=== PATIENT | male | born 1985 | race Caucasian/White ===

== ENCOUNTER 2018-02-07 06:12 | Day surgery (SDC) | payer OTHER, MEDICAID ==
--- NOTE | 2018-02-06 18:06 | PDGENHP ---
History & Physical Chief Complaint: left knee pain History of Present Illness: 32 yo male, presenting today for left knee ACL reconstruction surgery by dr. burkett for left knee ACL tear s/p ski injury. Pertinent Past, Social, Family History: allergies: NKDA. PMH: denies. meds: denies. soc: former smoker, occasional ETOH, denies recreational drug use Relevant Physical Exam: LLE: no erythema/edema/ecchymosis, 5deg valgus deformity , symmetric extension, flexion 0-160, +Piyush Assessment & Plan Assessment: 32 yo male w/ left knee ACL tear, presenting today for left knee ACL repair, partial medial/lateral meniscal repair vs menisectomy Plan: left knee ACL repair, partial medial/lateral meniscal repair vs menisectomy by dr. burkett
[~2018-02-07 06:12] MED LIST: LR 1,000 ML IV SCH; ceFAZolin 2 GM/DEXTROSE 100 ML IV ONE
[2018-02-07] MEDS ORDERED: LR 1,000 ML IV ONE (06:13)
[2018-02-07] MEDS ORDERED: ROPIVACAINE HCL 20 MG/10 ML INJ EP ONE ×2 (06:44→06:45)
[2018-02-07] MEDS ORDERED: MIDAZOLAM 2 MG/2 ML VIAL IVP ONE (06:49)
--- NOTE | 2018-02-07 06:49 | PDANEPAE ---
ANE History of Present Illness here for L ACL ANE Past Medical History - Cardiovascular History Hx Hypertension: No Hx Arrhythmias: No Hx Chest Pain: No Hx Coronary Artery / Peripheral Vascular Disease: No Hx CHF / Valvular Disease: No Hx Palpitations: No - Pulmonary History Hx COPD: No Hx Asthma/Reactive Airway Disease: No Hx Recent Upper Respiratory Infection: No Hx Oxygen in Use at Home: No Hx Sleep Apnea: No - Neurologic History Hx Cerebrovascular Accident: No Hx Seizures: No Hx Dementia: No - Endocrine History Hx Diabetes: No Hypothyroid: No Hyperthyroid: No - Renal History Hx Renal Disorders: No - Liver History Hx Hepatic Disorders: No ANE Review of Systems Review of systems is: negative Review of Systems: - Exercise capacity Exercise capacity: >=4 METS ANE Patient History - Allergies Allergies/Adverse Reactions: No Known Allergies Allergy (Unverified 08/22/14 14:14) - Home Medications Home medications: home medication list seen and reviewed Home Medications: NK [No Known Home Meds] 02/07/18 [Last Taken Unknown] - NPO status NPO Status: no food or drink >8 hours NPO Since - Liquids (Date): 02/06/18 NPO Since - Liquids (Time): 23:30 NPO Since - Solids (Date): 02/06/18 NPO Since - Solids (Time): 22:00 - Anes Hx Anes Hx: no prior problems - Smoking Hx Smoking Status: Current every day smoker ANE Labs/Vital Signs - Vital Signs Vital Signs: reviewed preoperatively; see RN documention for details Blood Pressure: 152/85 Heart Rate: 63 Respiratory Rate: 18 O2 Sat (%): 95 Height: 175.26 cm Weight: 79.379 kg ANE Physical Exam - Airway Neck exam: FROM Mallampati Score: Class 1 - Pulmonary Pulmonary: no respiratory distress - Cardiovascular Cardiovascular: regular rate and rhythym - ASA Status ASA Status: II ANE Anesthesia Plan Anesthesia Plan: GA w LMA Regional Anesthesia: adductor canal FNB
[2018-02-07] MEDS ORDERED: NS 500 ML IV PRN (06:56)
[2018-02-07] MEDS ORDERED: fentaNYL 100 MCG/2 ML INJ IVP PRN (06:56)
[2018-02-07] MEDS ORDERED: LR 500 ML IV PRN (06:56)
[2018-02-07] MEDS ORDERED: HYDROmorphONE/DILAUDID 1 MG/ML INJ IVP PRN ×2 (06:56→09:47)
[2018-02-07] MEDS ORDERED: ONDANSETRON 4 MG/2 ML VIAL IVP PRN ×2 (06:56→09:47)
[2018-02-07] MEDS ORDERED: DEXAMETHASONE 4 MG/ML VIAL IVP PRN (06:56)
[2018-02-07] MEDS ORDERED: ALBUTEROL 3 ML DEYVIAL IH PRN (06:56)
[2018-02-07] MEDS ORDERED: NALOXONE HCL 0.4 MG/ML INJ IVP PRN (06:56)
[2018-02-07] MEDS ORDERED: fentaNYL 100 MCG/2 ML INJ ONE ×2 (07:06→08:29)
[2018-02-07] MEDS ORDERED: PROPOFOL/EMULSION 500 MG/50 ML BOTTLE IV ONE (07:20)
[2018-02-07] MEDS ORDERED: ePHEDrine SULFATE 25 MG/5 ML SYR ONE (08:06)
[2018-02-07] MEDS ORDERED: oxyCODONE IR 5 MG TAB PO PRN (09:47)
[2018-02-07] MEDS ORDERED: ONDANSETRON DISINTEGRATING 4 MG TAB PO PRN (09:47)
[2018-02-07] MEDS ORDERED: PROMETHAZINE HCL 25 MG/ML INJ IVP PRN (09:47)
[2018-02-07] MEDS ORDERED: ACETAMINOPHEN 325 MG TAB PO PRN (09:47)
--- NOTE | 2018-02-07 09:52 | POSTOPPROG ---
Post Op Note Date of Operation: 02/07/18 Surgeon: Shawn Meza Labor Service Representative: Sebastian Mckenna PA-C Anesthesia: GET(General Endotracheal) Pre-op Diagnosis: left knee ACL rupture Post-op Diagnosis: left knee ACL rupture Procedure: left knee ACL hamstring graft repair Inf/Abcess present in the surg proc area at time of surgery?: No EBL: Minimal Complications: none
--- NOTE | 2018-02-07 10:23 | GOP ---
[f rep st] OPERATIVE REPORT DATE OF OPERATION: 02/07/2018 SURGEON: Shawn Meza MD FARM EQUIPMENT ASSEMBLER: Eric Mckenna PA-C, medically required for positioning of the leg during arthroscopi c ACL reconstruction and careful retraction of vital neurovascular structures during hamstring autogr aft. PREOPERATIVE DIAGNOSIS: 1. Left knee anterior cruciate ligament (ACL) tear. 2. Partial medial and lateral meniscus tears. 3. Chondromalacia. POSTOPERATIVE DIAGNOSIS: 1. Left knee anterior cruciate ligament (ACL) tear. 2. Partial medial and lateral meniscus tears. 3. Chondromalacia. PROCEDURE PERFORMED: 1. Arthroscopic anterior cruciate ligament (ACL) reconstruction with hamstring autograft, quadruple semi-tendinosis. 2. Arthroscopic partial medial and lateral meniscectomy less than 5% of the posterior horn removed. 3. Construct used was a 9.5 mm quadrupled over semitendinosus graft with reverse tensioning tight ro pes on either side. 4. Extensive synovectomy. FINDINGS: ESTIMATED BLOOD LOSS: Minimal. INDICATIONS: 32-year-old male who had a ski injury a couple years ago and repeat injury sustaining A CL tear. Clinically, radiographic and MRI confirmed the ACL tear. Knee instability. He did a pre-s urgical rehab that made his knee strong. DESCRIPTION OF PROCEDURE: The patient identified in the preoperative holding area, consent lateralit y and preoperative antibiotics were confirmed and delivered. All questions were answered. His girlf riend was at the bedside. Left knee was identified. He had full range of motion. Unstable Piyush' s, positive pivot shift. No swelling. Skin looked healthy. The patient brought into the operating room. Adductor canal block. All extremities well padded. Ge neral anesthesia. The left lower extremity was prepped and draped in usual sterile fashion. Surgica l time-out was performed. A thigh tourniquet was placed. The hamstring harvest ensued without the thigh tourniquet. Figure 4 position. A 2 cm incision over the pes anserinus. Blunt dissection. The sartorius fascia identified. We found the semi-tendinosis and harvested this after releasing the gastroc attachments. We had a nice robust graft and quadrupl ed over on the back table. We found it to be about a tight 9.5 mm graft. We fashioned a graft link with reverse tensioning tight ropes on either side at the 66 mm running length. We anticipated 20 mm sockets in depth. The graft was safely placed on the back table with a moist Ray-Hannah. Attention was then turned to the arthroscopic portion. Esmarch exsanguination. Total tourniquet clarence e was 60 minutes. Standard two portal technique diagnostic arthroscopy included grade 1 patella, gra de 0 trochlea, medial compartment looked excellent with a little bit of fraying of the medial meniscu s inner 3rd. The ACL was scarred to the PCL. The posterolateral bundle was completely torn and abou t 90% of the anteromedial bundle was torn. There were some chronic hypertrophic changes in the mid s ubstance. There was a partial cyclops lesion inferiorly at the tibial insertion. The lateral compar tment there was a small cleavage on the lateral tibial plateau, grade 1/2 cartilage damage, grade 1 s oftening of the lateral femoral condyle and the inner 3rd fraying of the posterior horn. Partial medial and lateral meniscectomy was performed, less than 5% of the posterior horn of either s melquiades. Extensive synovectomy was performed anterior medial and lateral compartment for ACL reconstruct ion. ACL debridement was performed. We marked the posterior aspect of the bifurcate ridge on the fe mur as well as tangential to the anterior horn and lateral meniscus. We drilled a 9.5 mm sockets abo ut 30 mm depth. We had about a 40 mm interosseous length on either side. Parked loops of sutures re trieved out of the anteromedial portal. We passed the graft easily. Predetermined henriquez. We tensio brook this in full extension. We took final pictures in 90 degrees knee flexion, knee extension, and w e had a grade 0 Piyush's, negative pivot shift and full range of motion of the knee. Arthroscopic fluid and debris were removed. We did C-arm films to ensure button placement which look ed excellent. We closed the wounds with 3-0 Monocryl and Dermabond, Mastisol, Steri-Strips, Xeroform , 4x4s, ABD, and sterile Ki. COMPLICATIONS: None. DISPOSITION: Extubated to the PACU in stable condition. /[id number]/MODL
[2018-02-07] MEDS ORDERED: ACETAMINOPHEN 325 MG TAB ONE (10:28)
[2018-02-07] MEDS ORDERED: oxyCODONE IR 5 MG TAB ONE (10:30)
[2018-02-07 11:10] VITALS: BP 128/77
--- NOTE | 2018-02-07 13:50 | POSTANESTH ---
Post Anesthetic Evaluation Cardiovascular Status: Normal, Stable Respiratory Status: Normal, Stable Level of Consciousness/Mental Status: Can Participate in Eval Pain Control: Adequate, Prn Tx Ordered Nausea/Vomiting Control: Adequate, Prn Tx Ordered Complications Possibly Related to Anesthesia: None Noted
== END 2018-02-07 12:10 | disposition home or self-care (01) ==
LOC: FSGY 06:12
PROVIDERS: ATTEND Orthopaedic Surgery
PROC: 0SBD4ZZ Excision of Left Knee Joint, Percutaneous Endoscopic Approach (ICD-10-PCS; principal; 2018-02-07 07:15)
PROC: 0SQD4ZZ Repair Left Knee Joint, Percutaneous Endoscopic Approach (ICD-10-PCS; principal; 2018-02-07 07:15)
PROC: 0MQP4ZZ Repair Left Knee Bursa and Ligament, Percutaneous Endoscopic Approach (ICD-10-PCS; principal; 2018-02-07 07:15)
DX: S83.512A Sprain of anterior cruciate ligament of left knee, initial encounter (principal); S83.242A Other tear of medial meniscus, current injury, left knee, initial encounter; S83.282A Other tear of lateral meniscus, current injury, left knee, initial encounter; M94.262 Chondromalacia, left knee; V00.328A Other snow-ski accident, initial encounter; Y93.23 Activity, snow (alpine) (downhill) skiing, snowboarding, sledding, tobogganing and snow tubing; Z72.0 Tobacco use
CPT/HCPCS: C1713; J0690; J2250; J2704; J2795; J3010